=== PATIENT | female | born 1980 | race Caucasian/White ===

== ENCOUNTER 2017-09-22 08:10 | Emergency (ER) | payer OTHER ==
[~2017-09-22] VITALS: Ht 177.8 cm; Wt 75.2 kg
[~2017-09-22 08:10] MED LIST: ALBUTEROL17 GM IH; AMOXICILLIN875 MG PO; AUGMENTIN875 MG PO; ENDOCET 5-3251 EACH PO; FIORICET WI1 CAPSULE PO; FLEXERIL10 MG PO; HYDROCODON-ACE1 EAC7 PO; INSPIRATION1 EACH MC; IRON SUPPL; MEDROL DOSEPAK4 MG PO; MIRENA52 MG IY; MOBIC15 MG PO; MOTRIN800 MG PO; MUCUS ER600 MG PO; NAPROSYN500 MG PO; NAPROXEN500 MG PO; PHENERGAN-CODE120 ML PO; PREDNISONE10 MG PO; ZANTAC75 MG PO; ZOFRAN4 MG PO
[2017-09-22 09:10] LABS: INTERNAL CONTROL VALID? YES
[2017-09-22 09:27] LABS: HEMATOCRIT 35.7 % (36.0-46.0); MCH 28.6 PG (29.0-34.0); MCHC 33.3 G/DL (30.0-36.0); MCV 85.8 FL (83-99); PLATELET COUNT 175 K/uL (156-360); RBC DIS.WIDTH-CV 12.5 % (11.8-14.6); RBC DIS.WIDTH-SD 39.3 % (39-53); RED BLOOD COUNT 4.16 M/uL (3.80-5.20); WHITE BLOOD COUNT 7.4 K/uL (4.1-10.2)
[2017-09-22 09:46] LABS: ANION GAP 8 MEQ/L (2-14); CHLORIDE 102 MEQ/L (99-109); POTASSIUM 3.9 MEQ/L (3.7-5.4); SAMPLE HEMOLYSIS CHECK 0; SAMPLE ICTERIC CHECK 0; SAMPLE LIPEMIA CHECK 0; SODIUM 136 MEQ/L (136-147); TOTAL BILIRUBIN 1.2 MG/DL (0.0-1.0)
[2017-09-22 09:52] LABS: ALKALINE PHOSPHATASE 72 IU/L (3-129); GFR ESTIMATE (CALCULATED) > 59 mL/min/; GLUCOSE 107 mg/dL (70-99); LIPASE 11 U/L (1.0-51.0); UREA NITROGEN (BUN) 7 mg/dL (9-23)
[2017-09-22 10:21] VITALS: BP 100/60
== END 2017-09-22 10:32 | disposition home or self-care (01) ==
LOC: EME 08:10
PROVIDERS: Emergency Medicine Emergency Medical Services
DX: B34.9 Viral infection, unspecified (principal); R10.13 Epigastric pain; K29.70 Gastritis, unspecified, without bleeding; R51 Headache; M54.2 Cervicalgia; J02.9 Acute pharyngitis, unspecified; R11.0 Nausea; R07.9 Chest pain, unspecified; K59.00 Constipation, unspecified; R05 Cough; J34.89 Other specified disorders of nose and nasal sinuses; Z90.49 Acquired absence of other specified parts of digestive tract; Z87.442 Personal history of urinary calculi; F17.200 Nicotine dependence, unspecified, uncomplicated
CPT/HCPCS: 80053; 83690; 84703; 85027